=== PATIENT | female | born 2000 | race Caucasian/White ===

== ENCOUNTER 2023-12-06 00:17 | Emergency (ER) | payer SELFPAY ==
[~2023-12-06] VITALS: Ht 160 cm; Wt 54.4 kg
[2023-12-06 00:55] VITALS: TEMP 98
[2023-12-06] MEDS ORDERED: ONDANSETRON HCL/PF 4 MG/2 ML VIAL ONE (01:17)
[2023-12-06 01:18] LABS: BASOPHILS % (AUTO) 0.4 % (0.0-2.0); EOSINOPHILS # (AUTO) 0.1 K/uL (0.0-0.7); EOSINOPHILS % (AUTO) 1.4 % (0.0-6.0); HEMATOCRIT 34 % (33-45); HEMOGLOBIN 11.4 g/dL (11.5-14.8); LYMPHOCYTES # (AUTO) 3.6 K/uL (0.8-4.8); LYMPHOCYTES % (AUTO) 42.4 % (20.0-44.0); MEAN CORPUSCULAR HEMOGLOBIN 27 PG (26.0-33.0); MEAN CORPUSCULAR HGB CONC 33 g/dl (31.0-36.0); MEAN CORPUSCULAR VOLUME 82 fL (82-100); MONOCYTES # (AUTO) 0.6 K/uL (0.1-1.30); NEUTROPHILS # (AUTO) 4.1 K/uL (1.8-8.9); NEUTROPHILS % (AUTO) 48.8 % (43.0-81.0); PLATELET COUNT (AUTO) 299 K/uL (150-450); RED BLOOD CELL COUNT(AUTO) 4.18 MIL/uL (4.0-5.2); WHITE BLOOD COUNT (AUTO) 8.5 K/uL (4.3-11.0)
[2023-12-06] MEDS: ONDANSETRON HCL/PF 4 MG/2 ML VIAL IVP ONE (01:21)
[2023-12-06] MEDS ORDERED: KETOROLAC TROMETHAMINE 15 MG/ML VIAL ONE (01:40)
[2023-12-06] MEDS ORDERED: MAG HYDROX/AL HYDROX/SIMETH 30 ML UDC ONE (01:41)
[2023-12-06] MEDS ORDERED: PANTOPRAZOLE 40 MG VIAL ONE (01:41)
[2023-12-06 01:44] LABS: ALBUMIN 3.7 g/dL (3.4-5.0); BILIRUBIN,DIRECT 0.1 mg/dL (0.0-0.2); BILIRUBIN,TOTAL 0.5 mg/dL (0.2-1.0); CREATININE 0.6 mg/dL (0.6-1.3); POTASSIUM 3.5 mmol/L (3.5-5.1); TOTAL PROTEIN, SERUM 7.3 g/dL (6.4-8.2)
[2023-12-06] MEDS: PANTOPRAZOLE 40 MG VIAL IV ONE (01:47)
[2023-12-06] MEDS: MAG HYDROX/AL HYDROX/SIMETH 30 ML UDC PO ONE (01:47)
[2023-12-06 01:49] LABS: APPEARANCE,URINE CLEAR (CLEAR); BILIRUBIN,URINE NEGATIVE (NEGATIVE); BLOOD, URINE NEGATIVE Ery/uL (NEGATIVE); COLOR,URINE YELLOW (YELLOW); KETONES,URINE NEGATIVE (NEGATIVE); LEUKOCYTE ESTERASE ,URINE NEGATIVE (NEGATIVE); NITRITE, URINE NEGATIVE (NEGATIVE); PROTEIN,URINE NEGATIVE (NEGATIVE); UGLUCOSE NEGATIVE (NEGATIVE); UROBILINOGEN,URINE 0.2 EU/dL (0.2)
[2023-12-06 01:54] LABS: PREGNANCY TEST URINE QUAL NEGATIVE (NEGATIVE)
[2023-12-06] MEDS: KETOROLAC TROMETHAMINE 15 MG/ML VIAL IV ONE (02:01)
[2023-12-06] MEDS ORDERED: PANT40TA2 PO (02:46)
[2023-12-06] MEDS ORDERED: AMOX875T2 PO (02:46)
[2023-12-06] MEDS ORDERED: CLAR-45 PO (02:46)
[2023-12-06 03:05] VITALS: BP 93/63; O2SAT 99
== END 2023-12-06 03:05 | disposition home or self-care (01) ==
LOC: ER 00:21
DX: K29.70 Gastritis, unspecified, without bleeding (principal); R11.2 Nausea with vomiting, unspecified; R51.9 Headache, unspecified; R10.13 Epigastric pain; R42 Dizziness and giddiness; R07.89 Other chest pain; Z87.19 Personal history of other diseases of the digestive system; Z60.2 Problems related to living alone
CPT/HCPCS: 99284; 96374; 96375; 85025; 80048; 83690; 80076; 84703; 81003; 36415; J2405; J2470; J1885